=== PATIENT | male | born 1965 ===

== ENCOUNTER 2023-11-13 05:32 | Day surgery (SDC) | payer OTHER ==
[2023-11-13] MEDS ORDERED: DIPHENHYDRAMINE HCL 50 MG/ML VIAL 1ML IV ONE (09:00)
[2023-11-13] MEDS ORDERED: MIDAZOLAM HCL 2 MG/2 ML VIAL IV ONE ×3 (09:00)
[2023-11-13] MEDS ORDERED: fentaNYL CITRATE 50 MCG/ML AMPUL IV PUSH ONE (09:00)
== END 2023-11-13 10:15 | disposition home or self-care (01) ==
LOC: AMB-ENDOS 05:32
PROVIDERS: ATTEND Colon & Rectal Surgery
DX: Z12.11 Encounter for screening for malignant neoplasm of colon (principal); Z86.010 Personal history of colon polyps; K62.3 Rectal prolapse